=== PATIENT | female | born 1980 | race Caucasian/White ===

== ENCOUNTER 2018-07-19 10:24 | Emergency (ER) | payer SELFPAY ==
[~2018-07-19 10:24] MED LIST: Sodium Chloride Irrig Solution 250 ML BOT ONE; Sterile Water Irrigation 250 ML BOT ONE
[2018-07-19] MEDS ORDERED: Cephalexin 500 MG CAP ONE (11:05)
[2018-07-19] MEDS ORDERED: Bacitracin Zinc 1 Packet ONE (11:05)
[2018-07-19] MEDS ORDERED: Lidocaine 1% w/Epinephrine 1:100K 30 ML VIAL ONE (11:05)
== END 2018-07-19 11:44 | disposition home or self-care (01) ==
LOC: MADERS 10:24
DX: S01.81XA Laceration without foreign body of other part of head, initial encounter (principal); F17.210 Nicotine dependence, cigarettes, uncomplicated; F41.9 Anxiety disorder, unspecified; W45.8XXA Other foreign body or object entering through skin, initial encounter
CPT/HCPCS: 12013; J2001